=== PATIENT | male | born 1995 | race Caucasian/White ===

== ENCOUNTER 2017-09-16 22:53 | Emergency (ER) | payer OTHER ==
[2017-09-16 22:57] VITALS: BP 123/58; PULSE 101; TEMP 98.2; BMI 17.7
[2017-09-16] MEDS ORDERED: ONDANSETRON *ODT* 4 MG TABLET SL ONE (23:26)
[2017-09-16] MEDS ORDERED: RANITIDINE HCL 150 MG TABLET (FP) PO ONE (23:26)
--- NOTE | 2017-09-16 23:32 | PDOC ---
History of Present Illness - General Chief Complaint: Nausea/Vomiting Stated Complaint: VOMITING/DIARRHEA Time Seen by Provider: 09/16/17 23:05 - History of Present Illness Initial Comments: 09/16/17 23:31 22-year-old male with left-sided abdominal pain with nausea vomiting diarrhea for 2 days. Patient denies fever/chills, hematochezia, urinary symptoms, testicular pain, headache, chest pain. Past History - Past Medical History Allergies/Adverse Reactions: Allergies Allergy/AdvReac Type Severity Reaction Status Date / Time No Known Allergies Allergy Verified 09/16/17 22:57 Home Medications: Ambulatory Orders NK [No Known Home Medication] 09/16/17 - Suicide/Smoking/Psychosocial Hx Smoking History: Never smoked Have you smoked in the past 12 months: No Hx Alcohol Use: No Drug/Substance Use Hx: No (hookah) Review of Systems - Review of Systems Able to Perform ROS?: Yes Is the patient limited Icelandic proficient: No Constitutional: No: Symptoms Reported, See HPI, Chills, Diaphoresis, Fever, Loss of Appetite, Malaise, Night Sweats, Weakness, Weight Stable, Unintentional Wgt. Loss, Unexplained wgt Loss, Other Respiratory: No: Symptoms reported, See HPI, Cough, Orthopnea, Shortness of Breath, SOB with Exertion, SOB at Rest, Stridor, Wheezing, Productive cough, Hemoptysis, Other ABD/GI: Yes: Diarrhea, Nausea, Vomiting, Abdominal cramping. No: Symptoms Reported, See HPI, Abdominal Distended, Abd. Pain w/ defecation, Blood Streaked Bowels, Constipated, Difficulty Swallowing, Poor Appetite, Poor Fluid Intake, Rectal Bleeding, Indigestion, Tarry Stools, Other : No: Symptoms Reported, See HPI, Burning, Dysuria, Discharge, Frequency, Flank Pain, Hematuria, Incontinence, Pain, Urgency, Testicular Mass, Testicular Swelling, Lesions, Testicular Pain, Other *Physical Exam - Vital Signs Last Vital Signs Temp Pulse Resp BP Pulse Ox 98.2 F 101 H 20 123/58 100 09/16/17 22:55 09/16/17 22:55 09/16/17 22:55 09/16/17 22:55 09/16/17 22:55 - Physical Exam General Appearance: Yes: Moderate Distress Gastrointestinal/Abdominal: positive: Normal Bowel Sounds, Tender (mild left lower quad tendernessY his eye tw), Soft Musculoskeletal: positive: Normal Inspection Extremity: positive: Normal Capillary Refill, Normal Inspection, Normal Range of Motion Integumentary: positive: Normal Color, Dry, Warm Neurologic: positive: Fully Oriented, Alert, Normal Mood/Affect Medical Decision Making - Medical Decision Making 09/16/17 23:33 A: GAstroenteritis P: zofran, zantac 09/17/17 02:10 LLQ pain. will CTAP to r/o acute findings. CTAP negative. *DC/Admit/Observation/Transfer Diagnosis at time of Disposition: Gastroenteritis Abdominal pain Qualifiers: Abdominal location: generalized Qualified Code(s): R10.84 - Generalized abdominal pain - Discharge Dispostion Disposition: HOME - Referrals Referrals: Toñito Cortez MD [Staff Physician] - Call tomorrow - Patient Instructions Printed Discharge Instructions: DI for Diarrhea and Traveler's Diarrhea -- Adult Additional Instructions: drink plenty of fluids follow up with your doctor start a BRAT (bananas, rice, apples toast) diet. return to the ER if symptoms worsen. - Post Discharge Activity
[2017-09-16] MEDS ORDERED: ONDANSETRON *ODT* 4 MG TABLET ONE (23:53)
[2017-09-16] MEDS ORDERED: RANITIDINE HCL 150 MG TABLET (FP) ONE (23:53)
[2017-09-17] MEDS ORDERED: ACETAMINOPHEN 325 MG TABLET (FP) PO ONE (00:35)
--- NOTE | 2017-09-17 00:36 | PDOC ---
*Physical Exam - Vital Signs Last Vital Signs Temp Pulse Resp BP Pulse Ox 98.2 F 101 H 20 123/58 100 09/16/17 22:55 09/16/17 22:55 09/16/17 22:55 09/16/17 22:55 09/16/17 22:55 ED Treatment Course - Medications Given in the ED: ED Medications Discontinued Medications Generic Name Dose Route Start Last Admin Trade Name Freq PRN Reason Stop Dose Admin Ondansetron HCl 4 mg 09/16/17 23:26 09/17/17 00:05 Zofran Odt - SL 09/16/17 23:27 4 mg ONCE ONE Administration Ranitidine HCl 150 mg 09/16/17 23:26 09/17/17 00:05 Zantac - PO 09/16/17 23:27 150 mg ONCE ONE Administration Medical Decision Making - Medical Decision Making 09/17/17 00:36 agree with care from JOSEPHINE Morrison *DC/Admit/Observation/Transfer Diagnosis at time of Disposition: Gastroenteritis Abdominal pain Qualifiers: Abdominal location: generalized Qualified Code(s): R10.84 - Generalized abdominal pain - Referrals - Patient Instructions - Post Discharge Activity
[2017-09-17] MEDS ORDERED: ACETAMINOPHEN 325 MG TABLET (FP) ONE (00:37)
== END 2017-09-17 02:38 | disposition home or self-care (01) ==
LOC: JER 22:53
DX: K52.9 Noninfective gastroenteritis and colitis, unspecified (principal)
CPT/HCPCS: 74176-TC; 99281-25; Q0162

== ENCOUNTER 2023-04-25 07:04 | Emergency (ER) | payer OTHER ==
[2023-04-25 07:16] VITALS: RESP 18; BMI 17.7
[2023-04-25] MEDS ORDERED: ACETAMINOPHEN 1000 MG/100 ML BAG IVPB ONE (08:31)
[2023-04-25] MEDS ORDERED: ACETAMINOPHEN INJECTION 100 ML IVPB ONE (08:46)
[2023-04-25 09:26] LABS: BASO % 0.4 % (0-2.0); EOS % 0.2 % (0-4.5); HEMATOCRIT 41.5 % (35.4-49); HEMOGLOBIN 13.9 GM/dL (11.7-16.9); LYMPH % 14.1 % (8-40); MCH 28.7 pg (25.7-33.7); MCHC 33.5 g/dl (32.0-35.9); MEAN CELL VOLUME 85.6 fl (80-96); MEAN PLT VOLUME 7.2 fl (7.5-11.1); MONO % 2.8 % (3.8-10.2); NEUT % 82.5 % (42.8-82.8); PLATELET COUNT 254 10^3/uL (134-434); RBC 4.85 M/mm3 (4.00-5.60); WHITE BLOOD COUNT 12.1 K/mm3 (4.0-10.0)
[2023-04-25] MEDS ORDERED: LACTATED RINGERS SOLUTION 1000 ML INFUS.BAG IV ONE (09:33)
[2023-04-25 09:53] LABS: POTASSIUM 3.8 mmol/L (3.5-5.1)
[2023-04-25 09:55] LABS: CALCIUM 8.6 mg/dL (8.5-10.1)
[2023-04-25 09:56] LABS: ALBUMIN 4.1 g/dl (3.4-5.0); BLOOD UREA NITROGEN 12.9 mg/dL (7-18)
[2023-04-25 09:58] LABS: CREATININE 0.9 mg/dL (0.55-1.3)
[2023-04-25 10:00] LABS: BILIRUBIN,TOTAL 0.4 mg/dL (0.2-1); TOT PROT 7.8 g/dl (6.4-8.2)
[2023-04-25 10:41] LABS: PH,URINE 7.5 (5.0-8.0); URINE APPEARANCE CLEAR; URINE BILIRUBIN NEGATIVE (NEGATIVE); URINE COLOR YELLOW; URINE GLUCOSE (UA) NEGATIVE (NEGATIVE); URINE KETONE NEGATIVE (NEGATIVE); URINE LEUK ESTERASE NEGATIVE (NEGATIVE); URINE NITRITE NEGATIVE (NEGATIVE); URINE PROTEIN NEGATIVE (NEGATIVE); URINE UROBILINOGEN 0.2 mg/dL (0.2-1.0)
[2023-04-25 11:15] LABS: COCAINE, UR NEGATIVE (NEGATIVE); OPIATES, URI NEGATIVE (NEGATIVE); URINE BARBITURATES NEGATIVE (NEGATIVE)
[2023-04-25 11:16] LABS: METHADONE, UR NEGATIVE (NEGATIVE); PHENCYCLIDINE,URINE NEGATIVE (NEGATIVE); URINE AMPHETAMINES NEGATIVE (NEGATIVE); URINE BENZODIAZEPINES NEGATIVE (NEGATIVE)
[2023-04-25 11:25] VITALS: BP 117/71; PULSE 84; TEMP 98.5
== END 2023-04-25 11:26 | disposition home or self-care (01) ==
LOC: JER 07:04
PROC: 3E033NZ Introduction of Analgesics, Hypnotics, Sedatives into Peripheral Vein, Percutaneous Approach (ICD-10-PCS; principal; 2023-04-25)
DX: R51.9 Headache, unspecified (principal); M54.9 Dorsalgia, unspecified; R11.2 Nausea with vomiting, unspecified; V89.2XXA Person injured in unspecified motor-vehicle accident, traffic, initial encounter; Z20.822 Contact with and (suspected) exposure to COVID-19
CPT/HCPCS: 0241U-QW; 36415; 70450-TC; 71046-TC-FY; 72125-TC; 80053; 80307; 81003; 83690; 85025; 87086; 99285-25